=== PATIENT | female | born 1955 | race Caucasian/White ===

== ENCOUNTER 2022-07-27 01:10 | Inpatient (IN) | payer OTHER, BC ==
[2022-07-27] MEDS ORDERED: dilTIAZem HCL 50 MG/10 ML - 10 ML VIAL IVPUSH ONE ×3 (01:31→04:54)
[2022-07-27] MEDS ORDERED: dilTIAZem HCL 125 MG/25 ML - 25 ML VIAL ONE ×3 (01:35→05:34)
[2022-07-27 01:55] LABS: BASO % 0.9 % (0-2.0); EOS % 3.3 % (0-4.5); HEMATOCRIT 38.3 % (32.4-45.2); HEMOGLOBIN 12.8 GM/dL (10.7-15.3); LYMPH % 31.5 % (8-40); MCH 29.5 pg (25.7-33.7); MCHC 33.5 g/dl (32.0-36.0); MEAN CELL VOLUME 88.2 fl (80-96); MEAN PLT VOLUME 8.4 fl (7.5-11.1); MONO % 13.2 % (3.8-10.2); NEUT % 51.1 % (42.8-82.8); PLATELET COUNT 349 10^3/uL (134-434); RBC 4.34 M/mm3 (3.60-5.2); RDW 14.6 % (11.6-15.6); WHITE BLOOD COUNT 6.8 K/mm3 (4.0-10.0)
[2022-07-27] MEDS ORDERED: dilTIAZem HCL 60 MG TABLET PO ONE (01:58)
[2022-07-27] MEDS ORDERED: dilTIAZem HCL 60 MG TABLET ONE (02:00)
[2022-07-27 02:17] LABS: CALCIUM 9.5 mg/dL (8.5-10.1)
[2022-07-27 02:18] LABS: ALBUMIN 3.6 g/dl (3.4-5.0); BLOOD UREA NITROGEN 19.8 mg/dL (7-18); MAGNESIUM 2.2 mg/dL (1.8-2.4)
[2022-07-27 02:22] LABS: TOT PROT 6.6 g/dl (6.4-8.2)
[2022-07-27 02:23] LABS: BILIRUBIN,TOTAL 0.4 mg/dL (0.2-1)
[2022-07-27 02:26] LABS: N-TERMINAL BNP 175.2 pg/ml (5-125)
[2022-07-27] MEDS ORDERED: METOPROLOL TARTRATE 5 MG/5 ML VIAL IVPUSH ONE (03:38)
[2022-07-27] MEDS ORDERED: METOPROLOL TARTRATE 5 MG/5 ML VIAL ONE (03:42)
[2022-07-27] MEDS ORDERED: metoPROLOL SUCCINATE 25 MG TAB.SR.24H (FP) PO ONE ×2 (03:51→04:01)
[2022-07-27] MEDS ORDERED: SODIUM CHLORIDE 0.9% 500 ML INFUS.BAG IV ONE (04:37)
[2022-07-27 06:32] LABS: BASO % 0.9 % (0-2.0); EOS % 0.1 % (0-4.5); HEMATOCRIT 41.8 % (32.4-45.2); HEMOGLOBIN 13.5 GM/dL (10.7-15.3); LYMPH % 13.2 % (8-40); MCH 28.7 pg (25.7-33.7); MCHC 32.2 g/dl (32.0-36.0); MEAN CELL VOLUME 89.2 fl (80-96); MEAN PLT VOLUME 9.1 fl (7.5-11.1); MONO % 5.6 % (3.8-10.2); NEUT % 80.2 % (42.8-82.8); PLATELET COUNT 387 10^3/uL (134-434); RBC 4.69 M/mm3 (3.60-5.2); RDW 15.2 % (11.6-15.6); WHITE BLOOD COUNT 8.6 K/mm3 (4.0-10.0)
[2022-07-27 06:55] LABS: BLOOD UREA NITROGEN 16.3 mg/dL (7-18)
[2022-07-27 06:56] LABS: ALBUMIN 3.7 g/dl (3.4-5.0); MAGNESIUM 2.2 mg/dL (1.8-2.4)
[2022-07-27 06:58] LABS: PHOSPHOROUS 3.5 mg/dL (2.5-4.9)
[2022-07-27 07:00] LABS: TOT PROT 7.1 g/dl (6.4-8.2)
[2022-07-27 07:05] LABS: BILIRUBIN,TOTAL 0.6 mg/dL (0.2-1)
[2022-07-27] MEDS: APIXABAN 5 MG TABLET PO SCH ×2 (09:23→21:58)
[2022-07-27] MEDS ORDERED: ENOXAPARIN NA (PORCINE) 40 MG/0.4 ML DISP.SYRIN SQ SCH (10:00)
[2022-07-27 11:06] VITALS: BMI 33.6
[2022-07-27] MEDS: SOTALOL HCL 80 MG TABLET (FP) PO SCH (21:58)
[2022-07-27] MEDS ORDERED: metoPROLOL SUCCINATE 25 MG TAB.SR.24H (FP) PO SCH (22:00)
[2022-07-28] MEDS: SOTALOL HCL 80 MG TABLET (FP) PO SCH ×2 (09:13→21:14)
[2022-07-28] MEDS: APIXABAN 5 MG TABLET PO SCH ×2 (09:14→21:14)
[2022-07-28] MEDS: MULTIVITAMINS (DAILY MVI) TABLET (FP) PO SCH (09:15)
[2022-07-28] MEDS: ROSUVASTATIN CA 5 MG TABLET PO SCH (09:16)
[2022-07-28] MEDS: LOSARTAN POTASSIUM 50 MG TABLET PO SCH (09:16)
[2022-07-28 09:40] LABS: BASO % 1.2 % (0-2.0); EOS % 1.3 % (0-4.5); HEMATOCRIT 37.2 % (32.4-45.2); HEMOGLOBIN 12.4 GM/dL (10.7-15.3); MCH 29.8 pg (25.7-33.7); MCHC 33.4 g/dl (32.0-36.0); MEAN CELL VOLUME 89.2 fl (80-96); MEAN PLT VOLUME 8.7 fl (7.5-11.1); MONO % 11.1 % (3.8-10.2); NEUT % 65.4 % (42.8-82.8); PLATELET COUNT 342 10^3/uL (134-434); RBC 4.17 M/mm3 (3.60-5.2); RDW 15.3 % (11.6-15.6)
[2022-07-28] MEDS ORDERED: ASPIRIN 81 MG CHEWABLE TABLETS PO SCH (10:00)
[2022-07-28 10:12] LABS: CALCIUM 8.8 mg/dL (8.5-10.1)
[2022-07-28 10:13] LABS: ALBUMIN 3.2 g/dl (3.4-5.0); BLOOD UREA NITROGEN 23.8 mg/dL (7-18); MAGNESIUM 2.3 mg/dL (1.8-2.4)
[2022-07-28 10:16] LABS: CREATININE 1.1 mg/dL (0.55-1.3)
[2022-07-28 10:17] LABS: TOT PROT 6.2 g/dl (6.4-8.2)
[2022-07-28] MEDS ORDERED: FAMOTIDINE 20 MG TABLET PO SCH (11:15)
[2022-07-28] MEDS: FAMOTIDINE 20 MG TABLET PO SCH (11:37)
[2022-07-29] MEDS: MULTIVITAMINS (DAILY MVI) TABLET (FP) PO SCH (09:18)
[2022-07-29] MEDS: APIXABAN 5 MG TABLET PO SCH (09:18)
[2022-07-29] MEDS: ROSUVASTATIN CA 5 MG TABLET PO SCH (09:18)
[2022-07-29] MEDS: SOTALOL HCL 80 MG TABLET (FP) PO SCH (09:19)
[2022-07-29] MEDS: FAMOTIDINE 20 MG TABLET PO SCH (09:19)
[2022-07-29] MEDS: LOSARTAN POTASSIUM 50 MG TABLET PO SCH (09:19)
[2022-07-29 10:59] VITALS: BP 127/77; PULSE 73; RESP 18; TEMP 98.6
== END 2022-07-29 11:14 | disposition home or self-care (01) | DRG 310 ==
LOC: JER 01:10 → JERBED 01:59 → J4W 08:44
PROVIDERS: ADMIT Internal Medicine; ATTEND Nurse Practitioner Acute Care
DX: I48.0 Paroxysmal atrial fibrillation (principal); I10 Essential (primary) hypertension; E78.5 Hyperlipidemia, unspecified; G25.81 Restless legs syndrome; R79.89 Other specified abnormal findings of blood chemistry; E03.9 Hypothyroidism, unspecified; K64.4 Residual hemorrhoidal skin tags; Z95.0 Presence of cardiac pacemaker
CPT/HCPCS: 36415; 71045-TC-FY; 80053; 83735; 83880; 84100; 84436; 84443; 84481; 84484; 85025; 93005; 93010; 93306-TC; 99291; C9803-CS; U0003; U0005

== ENCOUNTER 2023-02-12 01:35 | Observation (INO) | payer OTHER, BC ==
[2023-02-12 01:48] VITALS: BMI 32.5
[2023-02-12] MEDS ORDERED: dilTIAZem HCL 50 MG/10 ML - 10 ML VIAL IVPUSH ONE ×2 (01:58→05:02)
[2023-02-12] MEDS ORDERED: dilTIAZem HCL 125 MG/25 ML - 25 ML VIAL ONE ×2 (02:00→04:56)
[2023-02-12 02:10] LABS: BASO % 0.7 % (0-2.0); EOS % 1.5 % (0-4.5); HEMOGLOBIN 13.3 GM/dL (10.7-15.3); LYMPH % 23.8 % (8-40); MCH 29.2 pg (25.7-33.7); MCHC 33.1 g/dl (32.0-36.0); MEAN CELL VOLUME 88.1 fl (80-96); MEAN PLT VOLUME 8.5 fl (7.5-11.1); MONO % 13.2 % (3.8-10.2); NEUT % 60.8 % (42.8-82.8); PLATELET COUNT 387 10^3/uL (134-434); RBC 4.54 M/mm3 (3.60-5.2); RDW 15.3 % (11.6-15.6); WHITE BLOOD COUNT 9.6 K/mm3 (4.0-10.0)
[2023-02-12 02:22] LABS: INR 1.08 (0.83-1.09); PROTHROMBIN TIME (PATIENT) 12.5 SEC (9.7-13.0)
[2023-02-12 02:24] LABS: ACTIVATED PTT 31.3 SECONDS (25.2-36.5)
[2023-02-12] MEDS ORDERED: SODIUM CHLORIDE 0.9% 500 ML INFUS.BAG IV ONE ×2 (02:24→05:03)
[2023-02-12 02:28] LABS: POTASSIUM 4.5 mmol/L (3.5-5.1)
[2023-02-12 02:30] LABS: ALBUMIN 3.9 g/dl (3.4-5.0); BLOOD UREA NITROGEN 29.4 mg/dL (7-18); CALCIUM 9.5 mg/dL (8.5-10.1)
[2023-02-12 02:35] LABS: BILIRUBIN,TOTAL 0.5 mg/dL (0.2-1); TOT PROT 7.2 g/dl (6.4-8.2)
[2023-02-12] MEDS ORDERED: dilTIAZem HCL 60 MG TABLET PO ONE (03:24)
[2023-02-12] MEDS ORDERED: dilTIAZem HCL 60 MG TABLET ONE (03:25)
[2023-02-12] MEDS ORDERED: dilTIAZem HCL 60 MG TABLET PO SCH (09:00)
[2023-02-12 09:25] LABS: BASO % 0.9 % (0-2.0); EOS % 0.4 % (0-4.5); HEMATOCRIT 40.2 % (32.4-45.2); HEMOGLOBIN 13.5 GM/dL (10.7-15.3); LYMPH % 15.1 % (8-40); MCH 29.7 pg (25.7-33.7); MCHC 33.4 g/dl (32.0-36.0); MEAN CELL VOLUME 88.9 fl (80-96); MEAN PLT VOLUME 9.6 fl (7.5-11.1); MONO % 7.6 % (3.8-10.2); PLATELET COUNT 337 10^3/uL (134-434); RBC 4.53 M/mm3 (3.60-5.2); RDW 15.2 % (11.6-15.6); WHITE BLOOD COUNT 9.5 K/mm3 (4.0-10.0)
[2023-02-12 09:44] LABS: ALBUMIN 3.5 g/dl (3.4-5.0); MAGNESIUM 2.4 mg/dL (1.8-2.4)
[2023-02-12 09:47] LABS: CREATININE 0.9 mg/dL (0.55-1.3); PHOSPHOROUS 3.2 mg/dL (2.5-4.9)
[2023-02-12 09:48] LABS: BILIRUBIN,TOTAL 0.6 mg/dL (0.2-1); TOT PROT 6.7 g/dl (6.4-8.2)
[2023-02-12] MEDS ORDERED: SOTALOL HCL 80 MG TABLET (FP) PO SCH (10:00)
[2023-02-12] MEDS ORDERED: LOSARTAN POTASSIUM 50 MG TABLET PO SCH (10:00)
[2023-02-12] MEDS ORDERED: APIXABAN 5 MG TABLET PO SCH (10:00)
[2023-02-12] MEDS ORDERED: FAMOTIDINE 20 MG TABLET PO SCH (10:00)
[2023-02-12 14:30] VITALS: BP 137/73; PULSE 65; RESP 18; TEMP 98.2
[2023-02-12] MEDS ORDERED: ROSUVASTATIN CA 10 MG TABLET PO SCH (22:00)
== END 2023-02-12 14:57 | disposition home or self-care (01) ==
LOC: JER 01:35 → JERBED 05:32 → J4S 05:35
PROVIDERS: ADMIT Internal Medicine; ATTEND Internal Medicine
PROC: 3E033GC Introduction of Other Therapeutic Substance into Peripheral Vein, Percutaneous Approach (ICD-10-PCS; principal; 2023-02-12)
PROC: 3E0337Z Introduction of Electrolytic and Water Balance Substance into Peripheral Vein, Percutaneous Approach (ICD-10-PCS; 2023-02-12)
DX: I48.0 Paroxysmal atrial fibrillation (principal); I10 Essential (primary) hypertension; E78.5 Hyperlipidemia, unspecified; R00.0 Tachycardia, unspecified; E66.9 Obesity, unspecified; Z68.32 Body mass index [BMI] 32.0-32.9, adult; Z79.01 Long term (current) use of anticoagulants
CPT/HCPCS: 0241U-QW; 36415; 71045-TC-FY; 80053; 80061; 83735; 84100; 84443; 84484; 85025; 85610; 85730; 93005; 93010; 96374; 96376; 99285-25; G0378

== ENCOUNTER 2024-01-19 04:33 | Day surgery (SDC) | payer OTHER, BC ==
[2024-01-16 11:46] VITALS: BMI 35.5
[2024-01-19 09:07] VITALS: TEMP 98
[2024-01-19 09:30] VITALS: BP 100/52; PULSE 60; RESP 14
== END 2024-01-19 09:40 | disposition home or self-care (01) ==
LOC: JASU-ENDO 04:33
PROVIDERS: ATTEND Internal Medicine Gastroenterology
PROC: 0DBK8ZX Excision of Ascending Colon, Via Natural or Artificial Opening Endoscopic, Diagnostic (ICD-10-PCS; 2024-01-19)
PROC: 0DBM8ZX Excision of Descending Colon, Via Natural or Artificial Opening Endoscopic, Diagnostic (ICD-10-PCS; principal; 2024-01-19 09:00)
DX: Z12.11 Encounter for screening for malignant neoplasm of colon (principal); D12.3 Benign neoplasm of transverse colon; K63.5 Polyp of colon; K57.30 Diverticulosis of large intestine without perforation or abscess without bleeding; Z86.010 Personal history of colon polyps; I10 Essential (primary) hypertension
CPT/HCPCS: 88305-TC

== ENCOUNTER 2025-03-26 09:42 | Day surgery (SDC) | payer OTHER, BC ==
[2025-03-26] MEDS: IRON SUCROSE INJECTION 200 MG in SODIUM CHLORIDE 100 ML IVPB ONE (09:54)
[2025-03-26 13:14] VITALS: RESP 18; TEMP 98.2
[2025-03-26 13:16] VITALS: BP 123/57; PULSE 67
== END 2025-03-26 11:00 | disposition home or self-care (01) ==
LOC: JONCCHEMO 09:42
PROVIDERS: ATTEND Internal Medicine Hematology & Oncology
PROC: 3E033GC Introduction of Other Therapeutic Substance into Peripheral Vein, Percutaneous Approach (ICD-10-PCS; principal; 2025-03-26)
DX: D50.9 Iron deficiency anemia, unspecified (principal)
CPT/HCPCS: J1756

== ENCOUNTER 2025-04-10 09:15 | Day surgery (SDC) | payer OTHER, BC ==
[2025-04-10] MEDS: IRON SUCROSE COMPLEX 200 MG in SODIUM CHLORIDE 100 ML IVPB ONE (09:43)
[2025-04-10 10:41] LABS: ABSOLUTE IMMATURE GRANULOCYTES 0.03 x10^3/uL (0.0-0.031); BASOPHILS # 0.08 x10^3/uL (0.01-0.08); EOSINOPHIL % 2.8 % (0.7-5.8); EOSINOPHILS # 0.20 x10^3/uL (0.04-0.36); MCHC 29.0 g/dl (32.2-35.5); MEAN CELL VOLUME 102.1 fl (79.4-94.8); MEAN PLT VOLUME 11.0 fl (9.4-12.3); MONOCYTE # 0.83 x10^3/uL (0.24-0.86); MONOCYTE % 11.6 % (4.7-12.5); RDW 15.7 % (12.4-16.6)
[2025-04-10 16:00] VITALS: BP 105/50; PULSE 60; RESP 20; TEMP 98.1
== END 2025-04-10 10:40 | disposition home or self-care (01) ==
LOC: JONCNONCHE 09:15 → J7W 09:20 → JONCNONCHE 10:40
PROVIDERS: ATTEND Internal Medicine Hematology & Oncology
PROC: 3E033GC Introduction of Other Therapeutic Substance into Peripheral Vein, Percutaneous Approach (ICD-10-PCS; principal; 2025-04-10)
DX: D50.9 Iron deficiency anemia, unspecified (principal)
CPT/HCPCS: 36415; 85025; 96365

== ENCOUNTER 2025-04-17 12:01 | Day surgery (SDC) | payer OTHER, BC ==
[2025-04-17] MEDS: IRON SUCROSE INJECTION 200 MG in SODIUM CHLORIDE 100 ML IVPB ONE (12:42)
[2025-04-17 18:51] VITALS: BP 113/44; PULSE 56; RESP 20; TEMP 98.1
== END 2025-04-17 13:45 | disposition home or self-care (01) ==
LOC: JONCNONCHE 12:01 → J7W 12:02 → JONCNONCHE 13:45
PROVIDERS: ATTEND Internal Medicine Hematology & Oncology
PROC: 3E033GC Introduction of Other Therapeutic Substance into Peripheral Vein, Percutaneous Approach (ICD-10-PCS; principal; 2025-04-17)
DX: D50.9 Iron deficiency anemia, unspecified (principal)
CPT/HCPCS: 96365; J1756